=== PATIENT | female | born 1985 | race Caucasian/White ===

== ENCOUNTER 2017-04-30 14:33 | Emergency (ER) | payer OTHER, SELFPAY ==
[2017-04-30 14:34] VITALS: BMI 24.7
[2017-04-30 14:52] VITALS: BP 120/79; PULSE 62; RESP 17; TEMP 98.4; O2SAT 100
--- NOTE | 2017-04-30 15:45 | ED PDOC ---
HPI: Back Time Seen by Provider: 04/30/17 15:28 Chief Complaint (Nursing): Back Pain Chief Complaint (Provider): Low back pain History Per: Patient History/Exam Limitations: no limitations Onset/Duration Of Symptoms: Days (1) Additional Complaint(s): Patient is a 32 y/o female with no significant past medical history presenting to the emergency department for lower back pain following a fall down a flight of stairs today. Denies paresthesias, weakness, acute bowel or bladder incontinence, fever, previous history of back problems, or other complaints. PCP: none provided. Past Medical History Reviewed: Historical Data, Nursing Documentation, Vital Signs Vital Signs: Last Vital Signs Temp 98.4 F 04/30/17 14:51 Pulse 62 04/30/17 14:51 Resp 17 04/30/17 14:51 BP 120/79 04/30/17 14:51 Pulse Ox 100 04/30/17 14:51 - Medical History PMH: Denies: Anxiety, Depression - Surgical History Surgical History: (x2) - Family History Family History: States: No Known Family Hx - Home Medications Home Medications: Ambulatory Orders Medication Instructions Recorded Omeprazole Magnesium [Prilosec Otc] 20 mg PO DAILY #30 tcp 10/13/15 Cyclobenzaprine [Cyclobenzaprine 10 mg PO TID PRN #15 tab 04/30/17 HCl] Meloxicam [Mobic] 15 mg PO DAILY #20 tab 04/30/17 - Allergies Allergies/Adverse Reactions: Allergies Allergy/AdvReac Type Severity Reaction Status Date / Time No Known Allergies Allergy Verified 04/30/17 14:50 Review of Systems ROS Statement: Except As Marked, All Systems Reviewed And Found Negative Constitutional: Negative for: Fever Gastrointestinal: Negative for: Other (bowel or bladder incontinence) Musculoskeletal: Positive for: Back Pain (low) Neurological: Negative for: Weakness, Other (paresthesias) Physical Exam - Reviewed Nursing Documentation Reviewed: Yes Vital Signs Reviewed: Yes - Physical Exam Appears: Positive for: Well, Non-toxic, No Acute Distress Head Exam: Positive for: ATRAUMATIC, NORMAL INSPECTION, NORMOCEPHALIC Skin: Positive for: Normal Color, Warm, Dry. Negative for: Cyanosis Eye Exam: Positive for: Normal appearance. Negative for: Nystagmus, Conjunctival injection, Scleral icterus ENT: Positive for: Other (moist mucuous membranes) Neck: Positive for: Normal (with no meningismus) Cardiovascular/Chest: Positive for: Regular Rate, Rhythm. Negative for: Murmur Respiratory: Positive for: Normal Breath Sounds. Negative for: Accessory Muscle Use, Crackles, Rales, Rhonchi, Stridor, Wheezing, Respiratory Distress Gastrointestinal/Abdominal: Positive for: Normal Exam, Soft. Negative for: Tenderness, Mass (palpable) Back: Positive for: Vertebral Tenderness (mild, L3-L4). Negative for: L CVA Tenderness, R CVA Tenderness, Other (straight leg raising bilaterally) Extremity: Positive for: Normal ROM. Negative for: Pedal Edema Neurologic/Psych: Positive for: Alert, Oriented (x3), Other (ntact sensation bilaterally; normal strength in extension of the knees, plantar and dorsiflexion of the toes. DTRs symmetric.). Negative for: Motor/Sensory Deficits - ECG O2 Sat by Pulse Oximetry: 100 (RA) Pulse Ox Interpretation: Normal - Radiology X-Ray: Interpreted by Me, Viewed By Me X-Ray Interpretation: No Acute Disease Medical Decision Making Medical Decision Making: Time: 15:35 Initial impression: Lower back pain Initial plan: Flexeril 10 mg PO Toradol 60 mg IM POC Urine L-spine X-ray Reevaluation 16:27 Uhcg: (-) XR L-Spine: no fracture, as read by PA. Patient advised that official radiology read of XR is still pending and will call the patient if there is any discrepancy within 24 hours. On reevaluation, patient reports improvement of her pain. Patient is able to get up out of bed on her own without assistance, is observed to be ambulating in the ER within normal gait. X-ray results discussed with the patient. Diagnosis of back contusion discussed with the patient. Based on history, exam and diagnostic results plan will be for outpatient care. Patient is stable for discharge. Advised to follow up with primary care physician or the clinic in 1-2 days without fail. Advised to take medication as prescribed. Return to the emergency room at any time for any new or worsening symptoms. Patient states she fully agrees with and understands discharge instructions. States that she agrees with the plan and disposition. Verbalized and repeated discharge instructions and plan. I have given the patient opportunity to ask any additional questions. ~ Scribe Attestation: Documented by Dena Epps, acting as a scribe for NIGEL Little. Provider Scribe Attestation: All medical record entries made by the Scribe were at my direction and personally dictated by me. I have reviewed the chart and agree that the record accurately reflects my personal performance of the history, physical exam, medical decision making, and the department course for this patient. I have also personally directed, reviewed, and agree with the discharge instructions and disposition. Disposition - Clinical Impression Clinical Impression: Low back pain - Patient ED Disposition Is Patient to be Admitted: No Counseled Patient/Family Regarding: Studies Performed, Diagnosis, Need For Followup, Rx Given - Disposition Referrals: [facility] [Outside] Disposition: Routine/Home Disposition Time: 16:30 Condition: STABLE Additional Instructions: Thank you for letting us take care of you today. You were treated for low back pain, status post fall. The emergency medical care you received today was directed at your acute symptoms. If you were prescribed any medication, please fill it and take as directed. It may take several days for your symptoms to resolve. Return to the Emergency Department if your symptoms worsen, do not improve, or if you have any other problems. Please contact your doctor in 2 days for re-evaluation and follow up / or call one of the physicians/clinics you have been referred to that are listed on the Patient Visit Information form that is included in your discharge packet. Bring any paperwork you were given at discharge with you along with any medications you are taking to your follow up visit. Our treatment cannot replace ongoing medical care by a primary care provider (PCP) outside of the emergency department. [facility]. Prescriptions: Cyclobenzaprine [Cyclobenzaprine HCl] 10 mg PO TID PRN #15 tab PRN Reason: Muscle Spasm Meloxicam [Mobic] 15 mg PO DAILY #20 tab Instructions: Acute Low Back Pain (ED) Forms: [facility] ([place]an), [facility] ED School/Work Excuse Print Language: [place]AN[place]
--- NOTE | 2017-04-30 16:27 | RAD ---
PROCEDURE: Radiographs of the Lumbar Spine. HISTORY: pain COMPARISON: No prior. FINDINGS: BONES: Normal alignment. No listhesis. No fracture. DISC SPACES: Unremarkable. OTHER FINDINGS: None. IMPRESSION: Unremarkable radiographs of the lumbar spine.
== END 2017-04-30 16:46 | disposition home or self-care (01) ==
LOC: H.ER 14:33
DX: M54.5 Low back pain (principal); W10.9XXA Fall (on) (from) unspecified stairs and steps, initial encounter
CPT/HCPCS: 72100; 81025; 96372; 99282; J1885